=== PATIENT | female | born 1975 | race African-American/Black ===

== ENCOUNTER 2022-12-22 03:52 | Emergency (ER) | payer OTHER ==
--- OUTSIDE RECORDS SUMMARY | 2022-12-22 03:57 | XMS REPORT | Continuity of Care Document ---
:1975 Author Organization [facility] t Address [address] [place] [address] Care Team Providers Name Role Phone Pcp, Patient Does Not Have A Primary Care Physician [phone] JOHN DOYLE Attending Clinician Unavailable MD IAN Attending Clinician Unavailable LAB90 Attending Clinician Unavailable TAHMINA ORTA Attending Clinician Unavailable Dulce Nichols Attending Clinician Unavailable Doctor Unassigned, [place] Attending Clinician Unavailable NICA RECINOS Attending Clinician Unavailable Nica Recinos MD Attending Clinician Jaida Golden Attending Clinician Payers Payer Name Policy Type Policy Number Effective Date Expiration Date Gregorio price AETHARDIK CVS 9 [id number] 2022 BRONZE: HMO ON 00:00:00 STANDARD Problems Condition Condition Condition Status Onset Resolution Last Treating Co mments Source Name Details Category Date Date Treatment Clinician Date Lichen Lichen Disease Active Bridget planopilar planopilar 7-20 Se ybold is is 00:00: - 00 Externa l Chest pain Chest pain Disease Active K elsey 7-20 Seybold 00:00: - 00 Externa l Elevated Elevated Disease Active Kelse y brain brain 7-20 Seybold natriureti natriureti 00:00: - c peptide c peptide 00 Exte rna (BNP) (BNP) l level level HTN HTN Disease Active Bridget (hypertens (hypertens 7-19 Se ybold ion) ion) 00:00: - 00 Externa l BV BV Disease Active 2016-02 Univers (bacterial (bacterial 0-19 it y of vaginosis[place] Obesity Obesity Disease Active 2016-02 Univers due to due to 0-11 ity of excess excess 00:00: [place] calories calories 00 Medica l Branch History of History of Disease Active 2016-02 U nivers anxiety anxiety 0-11 ity of 00:00: [place] 00 Medical Branch History of History of Disease Active 2016-02 U nivers tubal tubal 0-11 ity of ligation ligation 00:00: [place] 00 Medical Branch Obesity Obesity Disease Active 2016-02 Univers due to due to 0-11 ity of excess excess 00:00: [place] calories calories 00 Medica l Branch D39.8 - D39.8 - Diagnosis Active 2016-11-25 Memoria NEOPLASM NEOPLASM 09-25 15:46:00 l OF OF 00:01: [place] UNCERTAIN UNCERTAIN 00 BEHAVIOR BEHAVIOR Active 09/25/2016 OPID Dowell Simple Simple Problem Active 2019-03-23 Kofi tamie obesity obesity 22:22:15 l (disorder) (disorder) He rmann Active Problem 03/23/2019 Medical Group Allergies, Adverse Reactions, Alerts Allergy Allergy Status Severity Reaction(s) Onset Inactive Treating Comm ents Source Name Type Date Date Clinician NO KNOWN Drug Active Univers ALLERGIE Class ity of S [facility] Social History Social Habit Start Date Stop Date Quantity Comments Source Sexual orientation [facility] Gender identity Bridget Se ybold - External Tobacco use and 2022-09-06 2022-09-06 Smokeless Bridget Se ybold - exposure 00:00:00 00:00:00 tobacco non-user External Alcohol intake 2022-09-06 2022-09-06 Current drinker Dank y Seybold - 00:00:00 00:00:00 of alcohol External (finding) Alcohol Comment 2022-09-06 2022-09-06 rare Bridget Se ybold - 00:00:00 00:00:00 External History of Social 2018-08-29 2018-08-29 Univers ity of function 00:00:00 00:00:00 [facility] Sex Ass[birth year] At [birth year] Bridget Baptiste ybold - 00:00:00 00:00:00 External Smoking Status Start Date Stop Date Source Social History [facility] Medications Ordered Filled Start Stop Current Ordering Indication Dosage Frequency Signature Comments Components Source Medication Medication Date Date Medication? Clinician (SIG) Name Name hydroCHLORO 3-0 Yes [id number] 25mg Take 1 Bridget thiazide 25 7-19 tablet (25 Se ybold MG oral 00:00: mg total) - Tablet 00 by mouth Externa every l morning Doxycycline 2022-0 Yes [id number] 100mg Take 1 Bridget Hyclate 100 6-27 capsule Seybo ld MG oral 00:00: (100 mg - Capsule 00 total) by Externa mouth l daily hydroCHLORO 3-0 Yes [id number] 25mg Take 1 Univers thiazide 25 5-30 tablet by ity of mg tablet 00:00: mouth [place] 00 every Medical morning. Branch methylPREDN 3-0 Yes [id number] Take by Univers ISolone 4 5-30 mouth ity of mg tablets 00:00: [place] CTIONS. Medical follow Branch package directions hydroCHLORO 3-0 Yes [id number] 25mg Take 1 Univers thiazide 25 5-30 tablet by ity of mg tablet 00:00: mouth [place] 00 every Medical morning. Branch methylPREDN 2023-0 Yes [id number] Take by Univers ISolone 4 5-30 mouth ity of mg tablets 00:00: [place] CTIONS. Medical follow Branch package directions hydroCHLORO 3-0 Yes [id number] 25mg Take 1 Univers thiazide 25 5-30 tablet by ity of mg tablet 00:00: mouth [place] 00 every Medical morning. Branch methylPREDN 2023-0 Yes [id number] Take by Univers ISolone 4 5-30 mouth ity of mg tablets 00:00: [place] CTIONS. Medical follow Branch package directions hydroCHLORO 3-0 Yes [id number] 25mg Take 1 Univers thiazide 25 5-30 tablet by ity of mg tablet 00:00: mouth [place] 00 every Medical morning. Branch methylPREDN 2023-0 Yes [id number] Take by Univers ISolone 4 5-30 mouth ity of mg tablets 00:00: [place] CTIONS. Medical follow Branch package directions hydroCHLORO 2023-0 Yes [id number] 25mg Take 1 Univers thiazide 25 5-30 tablet by ity of mg tablet 00:00: mouth [place] 00 every Medical morning. Branch methylPREDN Yes [id number] Take by Univers ISolone 4 5-30 mouth ity of mg tablets 00:00: [place] CTIONS. Medical follow Branch package directions hydroCHLORO 2022- No 25mg Take 1 Ludwin sey thiazide 25 5-30 07-19 tablet (25 S eybold MG oral 00:00: 00:00 mg total) - Tablet 00 :00 by mouth Externa every l morning Minoxidil Yes [id number] 2.5mg Take 1 K elsey 2.5 MG oral 5-01 tablet Seybol d Tablet 00:00: (2.5 mg - 00 total) by Externa mouth at l bedtime every day Metronidazo Yes 500 mg = 1 Memoria le 500 MG 1-30 tab, PO, l Oral Tablet 16:30: BID, X 7 He rmann 00 day, # 14 tab, 0 Refill(s), Pharmacy: [facility] [id number] Probiotic Yes 1 cap, PO, Me moria Formula 1-27 Daily, 0 l oral 16:40: Refill(s) Manuel capsule 00 naproxen Yes 550mg Take 1 Uni vers sodium 5-06 tablet by ity of (ANAPROX 00:00: mouth 2 [place] DS) 550 mg 00 (two) Medical tablet times Branch daily with meals. naproxen Yes 550mg Take 1 Uni vers sodium 5-06 tablet by ity of (ANAPROX 00:00: mouth 2 [place] DS) 550 mg 00 (two) Medical tablet times Branch daily with meals. naproxen Yes 550mg Take 1 Uni vers sodium 5-06 tablet by ity of (ANAPROX 00:00: mouth 2 [place] DS) 550 mg 00 (two) Medical tablet times Branch daily with meals. naproxen Yes 550mg Take 1 Uni vers sodium 5-06 tablet by ity of (ANAPROX 00:00: mouth 2 [place] DS) 550 mg 00 (two) Medical tablet times Branch daily with meals. naproxen Yes 550mg Take 1 Uni vers sodium 5-06 tablet by ity of (ANAPROX 00:00: mouth 2 [place] DS) 550 mg 00 (two) Medical tablet times Branch daily with meals. methylPREDN 2022- No Take by Univers ISolone 5-06 05-30 mouth ity of (MEDROL, 00:00: 00:00 [place] DARI,) 4 mg 00 :00 CTIONS. Medica l tablets follow Branch package directions metroNIDAZO Yes [id number] 500mg Take 1 Univers LE 500 mg 5-03 tablet by ity o f tablet 00:00: mouth 2 00 (two) Medical times Branch daily. metroNIDAZO Yes [id number] 500mg Take 1 Univers LE 500 mg 5-03 tablet by ity o f tablet 00:00: mouth 2 00 (two) Medical times Branch daily. metroNIDAZO Yes [id number] 500mg Take 1 Univers LE 500 mg 5-03 tablet by ity o f tablet 00:00: mouth 2 00 (two) Medical times Branch daily. metroNIDAZO Yes [id number] 500mg Take 1 Univers LE 500 mg 5-03 tablet by ity o f tablet 00:00: mouth 2 00 (two) Medical times Branch daily. metroNIDAZO Yes [id number] 500mg Take 1 Univers LE 500 mg 5-03 tablet by ity o f tablet 00:00: mouth 2 [place] 00 (two) Medical times Branch daily. Immunizations Ordered Filled Date Status Comments Source Immunization Name Immunization Name Covid-19 Vaccine 2020-03-30 Completed Bridget Machado ([employer]), Mrna-lnp, 00:00:00 Exter nal [place]an Protein, Pf, 30mcg/0.3ml,IM Covid-19 Vaccine 2020-03-09 Completed Bridget Machado ([employer]), Mrna-lnp, 00:00:00 Exter nal [place]an Protein, Pf, 30mcg/0.3ml,IM TDAP 2016-11-29 Completed [facility] 00:00:00 [facility] TDAP 2016-11-29 Completed [facility] 00:00:00 [facility] TDAP Unknown Completed [facility] TDAP Unknown Completed [facility] TDAP Unknown Completed [facility] Vital Signs Vital Name Observation Time Observation Value Comments Source Systolic blood 2022-09-06 19:49:00 122 mm[Hg] Bridget Wen - pressure External Diastolic blood 2022-09-06 19:49:00 76 mm[Hg] Dank beyer Seybold - pressure External Heart rate 2022-09-06 19:49:00 96 /min Bridget cisnerosbold - External Body temperature 2022-09-06 19:49:00 37.17 Fabiola Zora Wen - External Respiratory rate 2022-09-06 19:49:00 16 /min Zora cisneros Seybold - External Body height 2022-09-06 19:49:00 162.6 cm Bridget cisnerosbovinay - External Body weight 2022-09-06 19:49:00 84.369 kg Bridget cisnerosbovinay - External BMI 2022-09-06 19:49:00 31.93 kg/m2 Bridget cisnerosbovinay - External Oxygen saturation in 2022-09-06 19:49:00 91 /min Bridget Wen - Arterial blood by External Pulse oximetry Systolic blood 2022-07-18 19:49:00 156 mm[Hg] Univer sity [facility] Diastolic blood 2022-07-18 19:49:00 103 mm[Hg] Unive rsity of [facility] Heart rate 2022-07-18 19:49:00 77 /min [facility] Respiratory rate 2022-07-18 19:49:00 18 /min [facility] Oxygen saturation in 2022-07-18 19:49:00 100 /min [facility] Arterial blood by [facility] Pulse oximetry Branch Body temperature 2022-07-18 17:19:[address] [facility] height 2022-07-18 17:19:00 162.6 cm [facility] Body weight 2022-07-18 17:19:00 83.462 kg [facility] BMI 2022-07-18 17:19:00 31.58 kg/m2 [facility] Systolic (mm Hg) 2019-03-17 16:36:00 Kofi Jackson Diastolic (mm Hg) 2019-03-17 16:36:00 Mem orial Manuel Heart Rate 2019-03-17 16:36:00 Rudi Jackson Respitory Rate 2019-03-17 16:36:00 Travis Sidhu Temperature Oral (F) 2019-03-17 16:36:00 98.9 F Rudi Jackson Height 2019-03-17 16:36:00 162.56 cm Rudi Jackson Weight 2019-03-17 16:36:00 Rudi Jackson BMI Calculated 2019-03-17 16:36:00 Travis Sidhu Procedures Procedure Date / Time Performing Clinician Source Performed POCT TEST 2022-07-18 18:42:00 Nica Recinos [facility] COMP. METABOLIC PANEL 2022-07-18 18:30:00 Nica Recinos [facility] ([id number]) [facility] SEDIMENTATION RATE 2022-07-18 18:30:00 Nica Recinos [facility] CBC WITH DIFF 2022-07-18 18:30:00 Nica Recinos [place] [facility] PROTHROMBIN TIME / INR 2022-07-18 18:30:00 Nica Recinos [facility] ACTIVATED PARTIAL 2022-07-18 18:30:00 Nica Recinos [facility] THRMPLAS [facility] URINALYSIS 2022-07-18 18:30:00 Nica Recinos [facility] N-TERMINAL PRO-BNP 2022-07-18 18:30:00 Nica Recinos [facility] acute hospital URINE DRUG (IMMUNOASSAY) 2022-07-18 18:30:00 Nica Recinos [facility] DRUG [facility] SCREEN W/O REFLEX CONSENT/REFUSAL FOR 2022-07-18 17:13:55 Doctor Unassigned, No Un [facility] DIAGNOSIS AND TREATMENT Name Medical Branch Total hysterectomy 2013-02-19 00:00:00 Rudi Jackson Tubal ligation 1998-02-19 06:00:00 Rudi aden Encounters Start End Encounter Admission Attending Care Care Encounter Source Date/Time Date/Time Type Type Clinicians Facility Department ID 2022-10-24 2022-10-24 Outpatient BRIDGET DOYLE [id number] Bridget 09:10:00 09:10:00 JOHN Seybol juan 2022-10-24 2022-10-24 Outpatient VIVEK [facility] [id number] Bridget 00:00:00 00:00:00 JOHN Baptisteybol juan 2022-10-19 2022-10-19 Outpatient MOI [facility] [id number] Bridget 00:00:00 00:00:00 MD NOEMI Seybol juan 2022-09-06 2022-09-06 Outpatient LAB90 [facility] [id number] Bridget 15:50:00 15:50:00 Seybol juan 2022-09-06 2022-09-06 Outpatient LAYLACatrachitaBRIDGET [id number] Bridget 15:00:00 15:00:00 TAHMINA Baptisteybol juan 2022-07-21 2022-07-21 Ashlyn Nichols [facility] 1.2.840.114 [id number] Univers 00:00:00 00:00:00 (Out) Cardiology HEALTH 350.1.13.10 ity of - [place] [id number] [place] [address] Branch OFFICE [facility] 2022-07-21 2022-07-21 Patient Doctor [place] [id number] Univers 00:00:00 00:00:00 Secure Msg Unassigned, HEALTH 350.1.13.10 ity of [place] [id number] [place] [address] Branch OFFICE [facility] 2022-07-19 2022-07-19 Patient Doctor [facility] [id number] [id number] Univers 00:00:00 00:00:00 Secure Msg Unassigned, HEALTH 350.1.13.10 ity of [place] [phone] [address] OFFICE [facility] 2022-07-19 2022-07-19 Patient Doctor [facility] 1.2.840.114 [id number] Univers 00:00:00 00:00:00 Secure Msg Unassigned, PRIMARY 350.1.13.10 ity of [place] [facility] 4.2.7.2.686 Fede apodaca [place] [id number] Me dical [address] [place] 2022-07-18 2022-07-18 [id number] Univers 12:22:00 15:22:00 NICA ity [facility] 2022-07-18 2022-07-18 [facility] [id number] Univers 12:22:00 15:22:00 Nica [place] 350.1.13.10 i ty of [place] 4.2.7.2.686 Fede apodaca [place] [id number] [facility] [address] 2019-03-20 2019-03-21 Between nullFlavo [facility] [id number] Memoria 16:30:31 16:30:31 Visit r Primary 03 l Care Ben Lzi 2019-03-20 2019-03-21 Outpatient [facility] [id number] 10:30:31 10:30:31 03 2019-03-17 2019-03-18 Outpatient nullFlavo [facility] [id number] Memoria 16:30:00 05:59:59 r Primary 01 l Care Ben Liz 2019-03-17 2019-03-17 Outpatient Golden, [facility] [id number] 10:30:00 23:59:59 Jaida 01 2019-03-17 2019-03-17 Outpatient MHIE MHIE [id number] Memoria 10:30:00 10:30:00 01 catrachita Jackson 2016-09-25 2016-09-25 Outpatient MHIE [facility] [id number] Memoria 08:15:00 08:15:00 00 catrachita Jackson Results Test Description Test Time Test Comments Results Result Comments Source SEDIMENTATION RATE 2022-07-18 19:49:50 Test Item Value Reference Range Interpretation Comme nts ESR (test code = 83702-6) 12 See_Comment [ Automated message] The system which generated this result transmitted ref erence range: 0 - 20 mm/HR. The r eference range was not used to int erpret this result as normal/abnor mal. Lab Interpretation (test code = Normal 51833-4) [facility] [id number] 19:46:06 Test Item Value Reference Range Interpretation Comments NT-proBNP (test code = 307 pg/mL <=125 H [id number]) ELSI (test code = ELSI) Biotin has been reported to cause a negative bias, interpret results relative to patient's use of biotin. Lab Interpretation (test Abnormal code = 35938-8) [facility] THRMPLAS [id number] 19:42:22 Test Item Value Reference Range Interpretation Comments APTT Patient (test 23 See_Comment [Automat ed code = 3173-2) message] The system which generated this result transmitted reference range : 23 - 38 Seconds . The reference range was not used to interpr et this result as normal/abnormal . ELSI (test code = ELSI) The [facility] patient population mean normal value for aPTT is 30 seconds. Lab Interpretation Normal (test code = 32579-5) [facility] / [id number] 19:40:24 Test Item Value Reference Range Interpretation Comments PROTIME PATIENT (test 12.2 See_Comment [Auto mated message] code = 5964-2) The system wh ich generated this result transmitted ref erence range: 12.0 - 1 4.7 Seconds. The re ference range was not u sed to interpret this result as normal/abnor mal. INR (test code = 6301-6) 0.9 Nor mal INR <1.1; Warfarin Therap eutic range 2.0 to 3. 0 or 2.5 to 3.5, dep ending upon the indica tions. Lab Interpretation (test Normal code = 95008-9) [facility] ([id number])2022-07-18 19:37:41 Test Item Value Reference Range Interpretation Comments NA (test code = 138 mmol/L 135-145 4213432694) K (test code = 4.2 mmol/L 3.5-5.0 1899654689) CL (test code = 105 mmol/L 98-108 5128811963) CO2 TOTAL (test code 28 mmol/L 23-31 = 3602757355) AGAP (test code = 5 2-16 1118689685) BUN (test code = 12 mg/dL 7-23 4217484384) GLUCOSE (test code = 84 mg/dL 70-110 6096762285) CREATININE (test code 0.79 mg/dL 0.50-1.04 = 3104930564) TOTAL BILI (test code 0.6 mg/dL 0.1-1.1 = 0820277135) CALCIUM (test code = 8.9 mg/dL 8.6-10.6 5888242026) T PROTEIN (test code 6.9 g/dL 6.3-8.2 = 5673068571) ALBUMIN (test code = 3.8 g/dL 3.5-5.0 8508805341) ALK PHOS (test code = 57 U/L 34-122 5808716237) ALTv (test code = 29 U/L 5-35 1742-6) AST(SGOT) (test code 33 U/L 13-40 = 0457172998) eGFR (test code = 78.4 mL/min/1.73m2 6850035409) ELSI (test code = ELSI) Association of Glomerular Filtration Rate (GFR) and Staging of Kidney Disease* + + +- +| GFR (mL/min/1.73 m2) ?| With Kidney Damage ?| ?Without Kidney Damage+ ------+ ----+ ------+| ?>90 ?| ?Stage one ?| ? Normal ?+ -+ + -+| ?60-89 ?| ?Stage two ?| ? Decreased GFR ? + + +- +| ?30-59 ?| ?Stage three ?| ? Stage three ? + + +- +| ?15-29 ?| ?Stage four ? | ? Stage four ?+ -+ + -+| ?<15 (or dialysis) ? ?| ?Stage five ? | ? Stage five ?+ -+ + -+ *Each stage assumes the associated GFR level has been in effect for at least three months. ?Stages 1 to 5, with or without kidney disease, indicate chronic kidney disease. Notes: Determination of stages one and two (with eGFR >59mL/min/1.73 m2) requires estimation of kidney damage for at least three months as defined by structural or functional abnormalities of the kidney, manifested by either:Pathological abnormalities or Markers of kidney damage (including abnormalities in the composition of the blood or urine or abnormalities in imaging tests). [facility] WITH [id number] 19:18:20 Test Item Value Reference Range Interpretation Comments WBC (test code = 6.78 See_Comment [Automated 6690-2) message] The sy stem which generated this result transmitted reference range : 4.30 - 11.10 10*3/?L. The reference range was not used to interpret this result as normal/abnormal . RBC (test code = 4.32 See_Comment [Automated 789-8) message] The sy stem which generated this result transmitted reference range : 3.93 - 5.25 10*6/?L. The reference range was not used to interpret this result as normal/abnormal . HGB (test code = 12.4 g/dL 11.6-15.0 718-7) HCT (test code = 37.6 % 35.7-45.2 4544-3) MCV (test code = 87.0 fL 80.6-95.5 787-2) MCH (test code = 28.7 pg 25.9-32.8 785-6) MCHC (test code = 33.0 g/dL 31.6-35.1 786-4) RDW-SD (test code = 38.6 fL 39.0-49.9 L 79173-2) RDW-CV (test code = 12.0 % 12.0-15.5 788-0) PLT (test code = 235 See_Comment [Automated 777-3) message] The sy stem which generated this result transmitted reference range : 166 - 358 10*3/ ?L. The reference r alissa was not used to interpret this result as normal/abnormal . MPV (test code = 10.8 fL 9.5-12.9 21140-9) NRBC/100 WBC (test 0.0 See_Comment [Automat ed code = 3628636066) message] The system which generated this result transmitted reference range : 0.0 - 10.0 /100 WBCs. The refer ence range was not u sed to interpret th is result as normal/abnormal . NRBC x10^3 (test code See_Comment [Auto mated = 3561612437) message] The s ystem which generated this result transmitted reference range : 10*3/?L. The reference range was not used to interpret this result as normal/abnormal . GRAN MAT (NEUT) % 54.0 % (test code = 770-8) IMM GRAN % (test code 0.10 % = 7826431252) LYMPH % (test code = 35.1 % 736-9) MONO % (test code = 6.8 % 5905-5) EOS % (test code = 3.1 % 713-8) BASO % (test code = 0.9 % 706-2) GRAN MAT x10^3(ANC) 3.66 10*3/uL 1.88-7.09 (test code = 7817043794) IMM GRAN x10^3 (test 0.00-0.06 code = 1789661289) LYMPH x10^3 (test code 2.38 10*3/uL 1.32-3.29 = 731-0) MONO x10^3 (test code 0.46 10*3/uL 0.33-0.92 = 742-7) EOS x10^3 (test code = 0.21 10*3/uL 0.03-0.39 711-2) BASO x10^3 (test code 0.06 10*3/uL 0.01-0.07 = 704-7) Lab Interpretation Abnormal (test code = 10932-7) [facility] [id number] 18:42:00 Test Item Value Reference Range Interpretation Comments POCT PREG (test code = 1605) Negative On board controls acceptable with Yes C Line (test code = 3574) POCT PREG LOT # (test code = 3575) [id number] POCT PREG TEST DATE (test 11-25-2023 code = 3576) Lab Interpretation (test code = Normal 13724-7) [facility]"
[2022-12-22] MEDS ORDERED: MORPHINE 4 MG/ML SYR ONE (04:22)
[2022-12-22] MEDS ORDERED: NA CHLORIDE 0.9% 1,000 ML ONE (04:22)
[2022-12-22] MEDS ORDERED: FAMOTIDINE 20 MG/2 ML VIAL IV ONE (04:22)
[2022-12-22] MEDS ORDERED: ONDANSETRON 4 MG/2 ML VIAL ONE (04:22)
[2022-12-22 04:24] LABS: Absolute Lymphocytes (CBC) 2.8 K/uL (0.7-4.9); Hematocrit 40.4 % (36.0-45.0); MCV 86.6 fL (80-100); MPV 8.8 fL (7.6-11.3); Platelets 238 thou/uL (152-406); RBC Red Blood Cell Count 4.67 M/uL (3.86-4.86)
[2022-12-22 04:41] LABS: Albumin 3.5 g/dL (3.4-5.0); Bilirubin Total 0.2 mg/dL (0.2-1.0); Potassium 3.7 mEq/L (3.5-5.1); Protein, Total 7.6 g/dL (6.4-8.2)
--- NOTE | 2022-12-22 05:34 | ER ---
Nurse's Notes [facility] Name: Tegan Humphrey Age: 47 yrs Sex: Female : 1975 Arrival Date: 12/22/2022 Time: 03:52 Bed 15 Private MD: Diagnosis: Epigastric abdominal tenderness;Calculus of gallbladder and bile duct with acute cholecystitis with obstruction-CHOLEDOCLITHIASIS Presentation: 12/22 04:08 Chief complaint: Patient states: indigestion for the past 2 weeks but the last 2 nights as6 when she lays down the pain shifts to her right side of her chest. Coronavirus screen: At this time, the client does not indicate any symptoms associated with coronavirus-19. Ebola Screen: No symptoms or risks identified at this time. Initial Sepsis Screen: Does the patient meet any 2 criteria? No. Patient's initial sepsis screen is negative. Does the patient have a suspected source of infection? No. Patient's initial sepsis screen is negative. Risk Assessment: Do you want to hurt yourself or someone else? Patient reports no desire to harm self or others. Onset of symptoms was December 20, 2022. 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 - Social history:: Smoking status: Patient denies any tobacco usage or history of. - Family history:: not pertinent. Screenin:[address] [facility] ED Fall Risk Assessment (Adult) History of falling in the last 3 months, jw7 including since admission No falls in past 3 months (0 pts) Score/Fall Risk Level 0 - 2 = Low Risk Oriented to surroundings, Maintained a safe environment. Abuse screen: Denies threats or abuse. Denies injuries from another. Nutritional screening: No deficits noted. Tuberculosis screening: No symptoms or risk factors identified. Assessment: 04:15 General: Appears in no apparent distress. uncomfortable, Behavior is calm, cooperative. jw7 Pain: Complains of pain in right upper quadrant Pain radiates to back Pain currently is 8 out of 10 on a pain scale. Quality of pain is described as sharp, stabbing, Pain began suddenly, Is continuous, Alleviated by nothing. Aggravated by eating, Noted to be grimacing, guarding, resistant to movement, restless, Also complains of decreased appetite, sleeplessness. Neuro: Contreras Agitation-Sedation Scale (RASS): 0 - Alert and Calm Level of Consciousness is awake, alert, obeys commands, Oriented to person, place, time, situation. Cardiovascular: Capillary refill < 3 seconds Clubbing of nail beds is absent JVD is absent Patient's skin is warm and dry. Respiratory: Airway is patent Trachea midline Respiratory effort is even, unlabored, Respiratory pattern is regular, symmetrical. GI: Abdomen is flat, non-distended, Bowel sounds present X 4 quads. Abd is soft X 4 quads Abdomen is tender to palpation in right upper quadrant Guarding noted Reports upper abdominal pain. : No deficits noted. No signs and/or symptoms were reported regarding the genitourinary system. EENT: No deficits noted. No signs and/or symptoms were reported regarding the EENT system. Derm: Skin is intact, is healthy with good turgor, Skin is dry, Skin is normal, Skin temperature is warm. Musculoskeletal: Circulation, motion, and sensation intact. Range of motion: intact in all extremities. 05:10 Reassessment: Patient appears in no apparent distress at this time. No changes from jw7 previously documented assessment. Patient and/or family updated on plan of care and expected duration. Pain level reassessed. Patient is alert, oriented x 3, equal unlabored respirations, skin warm/dry/pink. 06:12 Reassessment: Patient appears in no apparent distress at this time. Patient and/or jw7 family updated on plan of care and expected duration. Pain level reassessed. Patient is alert, oriented x 3, equal unlabored respirations, skin warm/dry/pink. Patient states feeling better. Patient states symptoms have improved. 06:56 Reassessment: Patient appears in no apparent distress at this time. No changes from 7 previously documented assessment. Patient and/or family updated on plan of care and expected duration. Pain level reassessed. Patient is alert, oriented x 3, equal unlabored respirations, skin warm/dry/pink. 07:10 Reassessment: Patient appears in no apparent distress at this time. Patient and/or db family updated on plan of care and expected duration. Pain level reassessed. Patient is alert, oriented x 3, equal unlabored respirations, skin warm/dry/pink. ambulatory to restroom. Vital Signs: 04:06 BP 140 / 93; Pulse 77; Resp 18 S; Temp 97.9(TE); Pulse Ox 100% on R/A; Weight 79.83 kg as6 (R); Height 5 ft. 4 in. (R); Pain 7/10; 05:00 BP 128 / 86; Pulse 69; Resp 17 S; Pulse Ox 100% on R/A; jw7 06:16 BP 135 / 88; Pulse 70; Resp 16 S; Pulse Ox 100% on R/A; jw7 07:05 BP 144 / 87; Pulse 71; Resp 16; Pulse Ox 100% on R/A; db 04:06 Body Mass Index 30.21 (79.83 kg, 162.56 cm) as6 04:06 Pain Scale: Adult as6 ED Course: 03:57 Patient arrived in ED. gm2 03:59 Clay Barker, RN is Primary Nurse. as6 04:01 Leonel Trejo MD is Attending Physician. jonathan 04:05 Ashli Shultz, RN is Primary Nurse. jw7 04:06 Arm band placed on. as6 04:14 Triage completed. as6 04:15 Patient has correct armband on for positive identification. Bed in low position. Call jw7 light in reach. Side rails up X 1. 04:46 Troponin HS Sent. jw7 04:46 Initial lab(s) drawn, by ED staff, sent to lab. Inserted saline lock: 22 gauge in left jw7 antecubital area, using aseptic technique. Blood collected. 05:02 Abdomen Limited US In Process Unspecified. EDMS 05:22 CT Abd/Pelvis - IV Contrast Only In Process Unspecified. EDMS 05:35 transfer initiated by Leela with Camille Oliveros From the [facility]. eb 05:37 Test, Urine Sent. kmf 05:37 Urinalysis w/ reflexes Sent. kmf 05:57 Dr. Pan the hospitalist pain management nurse practitioner for [facility] was connected with Dr. Neil florian for patient transfer consultation. 06:05 administrative approval given by Camille Boswell Rn to [facility] tech/ patient has been eb accepted to [facility] room 1642/ Dr. Sarah Pan has accepted the patient in transfer/ report to be called to [phone]. 06:17 No provider procedures requiring assistance completed. jw7 06:54 [facility] unavailable till after 0800/ [facility] for transport eta 25 eb minutes. 06:56 Provided Education on: need for transfer. jw7 06:56 Patient transferred, IV remains in place. jw7 07:23 Pulse ox on. NIBP on. db Administered Medications: 04:47 Drug: NS 0.9% IV 1000 ml IV at 1 bolus Per protocol; 1000 mL bolus Route: IV; Rate: 1 jw7 bolus; Site: left antecubital; 07:10 Follow up: Response: No adverse reaction; IV Status: Completed infusion db 04:47 Drug: Famotidine IVP 20 mg IVP once; dilute with 10 mL 0.9% NaCl; give over 2 minutes jw7 Route: IVP; Site: left antecubital; 06:06 Follow up: Response: No adverse reaction; Marked relief of symptoms jw7 04:47 Drug: Ondansetron IVP 4 mg IVP once; over 2 minutes Route: IVP; Site: left antecubital; jw7 06:06 Follow up: Response: No adverse reaction; Marked relief of symptoms jw7 04:47 Drug: morphine IVP or IV 4 mg IVP once over 4 mins Route: IVP; Infused Over: 4 mins; jw7 Site: left antecubital; 06:06 Follow up: Response: No adverse reaction; Marked relief of symptoms jw7 06:05 Drug: Piperacillin-Tazobactam IVPB 3.375 grams IVPB once over 60 mins; (mix in NS 100 jw7 mL) Route: IVPB; Infused Over: 60 mins; Site: left antecubital; 07:10 Follow up: Response: No adverse reaction; IV Status: Completed infusion db Medication: 06:17 VIS not applicable for this client. jw7 Outcome: 05:33 ER care complete, transfer ordered by MD. castillo 07:23 Transferred by ground EMS to [facility], Transfer form completed. db 07:23 Condition: stable 07:23 Instructed on the need for transfer, 07:25 Patient left the ED. db Signatures: Dispatcher [employer] EDLeonel Pepe MD MD cha Botello, Elizabeth eb Slawson, Ashby RN RN as6 Ashli Shultz RN RN jw7 Glenny Vu RN RN Mehreen Hope [facility] Bridget Ibarra [facility]
--- NOTE | 2022-12-22 05:34 | EDPHYS ---
Physician Documentation [facility] Name: Tegan Humphrey Age: 47 yrs Sex: Female : 1975 Arrival Date: 12/22/2022 Time: 03:52 Bed 15 Private MD: MALGORZATA Physician Leonel Trejo HPI: 12/22 05:18 This 47 yrs old Black Female presents to ER via Ambulatory with complaints of upper jonathan right side pain.. 05:18 The patient presents with abdominal pain in the upper abdomen, abdominal distention in jonathan the upper abdomen. Onset: The symptoms/episode began/occurred 5 day(s) ago. The patient presents to the emergency department with nausea, that is moderate, vomiting, that is intermittent. Onset: The symptoms/episode began/occurred 5 day(s) ago. Possible causes: unknown. The symptoms are aggravated by movement, food , The symptoms are alleviated by remaining still. Associated signs and symptoms: Pertinent positives: abdominal pain. The symptoms radiate to right back. Associated signs and symptoms: Pertinent positives: nausea and vomiting. 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 - Social history:: Smoking status: Patient denies any tobacco usage or history of. - Family history:: not pertinent. ROS: 05:18 Constitutional: Negative for fever, chills, and weight loss, Eyes: Negative for injury, jonathan pain, redness, and discharge, ENT: Negative for injury, pain, and discharge, Neck: Negative for injury, pain, and swelling, Cardiovascular: Negative for chest pain, palpitations, and edema, Respiratory: Negative for shortness of breath, cough, wheezing, and pleuritic chest pain, Back: Negative for injury and pain, : Negative for injury, bleeding, discharge, and swelling, MS/Extremity: Negative for injury and deformity, Skin: Negative for injury, rash, and discoloration, Neuro: Negative for headache, weakness, numbness, tingling, and seizure, Psych: Negative for depression, anxiety, suicide ideation, homicidal ideation, and hallucinations, Allergy/Immunology: Negative for hives, rash, and allergies, Endocrine: Negative for neck swelling, polydipsia, polyuria, polyphagia, and marked weight changes, Hematologic/Lymphatic: Negative for swollen nodes, abnormal bleeding, and unusual bruising, 05:18 Abdomen/GI: Positive for abdominal pain, of the epigastric area, posterior aspect of right lateral abdomen, anterior aspect of right lateral abdomen and right upper quadrant, 05:18 Back: Positive for flank pain, on the right, Exam: 05:18 Constitutional: This is a well developed, well nourished patient who is awake, alert, jonathan and in no acute distress. Head/Face: Normocephalic, atraumatic. Eyes: Pupils equal round and reactive to light, extra-ocular motions intact. Lids and lashes normal. Conjunctiva and sclera are non-icteric and not injected. Cornea within normal limits. Periorbital areas with no swelling, redness, or edema. ENT: Nares patent. No nasal discharge, no septal abnormalities noted. Tympanic membranes are normal and external auditory canals are clear. Oropharynx with no redness, swelling, or masses, exudates, or evidence of obstruction, uvula midline. Mucous membranes moist. Neck: Trachea midline, no thyromegaly or masses palpated, and no cervical lymphadenopathy. Supple, full range of motion without nuchal rigidity, or vertebral point tenderness. No Meningismus. Chest/axilla: Normal chest wall appearance and motion. Nontender with no deformity. No lesions are appreciated. Cardiovascular: Regular rate and rhythm with a normal S1 and S2. No gallops, murmurs, or rubs. Normal PMI, no JVD. No pulse deficits. Respiratory: Lungs have equal breath sounds bilaterally, clear to auscultation and percussion. No rales, rhonchi or wheezes noted. No increased work of breathing, no retractions or nasal flaring. Back: No spinal tenderness. No costovertebral tenderness. Full range of motion. Female : Normal external genitalia. Skin: Warm, dry with normal turgor. Normal color with no rashes, no lesions, and no evidence of cellulitis. MS/ Extremity: Pulses equal, no cyanosis. Neurovascular intact. Full, normal range of motion. Neuro: Awake and alert, GCS 15, oriented to person, place, time, and situation. Cranial nerves II-XII grossly intact. Motor strength 5/5 in all extremities. Sensory grossly intact. Cerebellar exam normal. Normal gait. Psych: Awake, alert, with orientation to person, place and time. Behavior, mood, and affect are within normal limits. 05:18 ECG was reviewed by the Attending Physician. 05:18 Abdomen/GI: Inspection: abdomen appears normal, Bowel sounds: normal, Palpation: mild abdominal tenderness, in the posterior aspect of right lateral abdomen, anterior aspect of right lateral abdomen and right upper quadrant, Liver: no appreciated palpable abnormalities, Hernia: not appreciated, 05:41 ECG was reviewed by the Attending Physician. [facility] Vital Signs: 04:06 BP 140 / 93; Pulse 77; Resp 18 S; Temp 97.9(TE); Pulse Ox 100% on R/A; Weight 79.83 kg as6 (R); Height 5 ft. 4 in. (R); Pain 7/10; 05:00 BP 128 / 86; Pulse 69; Resp 17 S; Pulse Ox 100% on R/A; jw7 06:16 BP 135 / 88; Pulse 70; Resp 16 S; Pulse Ox 100% on R/A; jw7 07:05 BP 144 / 87; Pulse 71; Resp 16; Pulse Ox 100% on R/A; db 04:06 Body Mass Index 30.21 (79.83 kg, 162.56 cm) as6 04:06 Pain Scale: Adult as6 MDM: 04:02 Patient medically screened. [facility] 05:22 Differential diagnosis: Nonspecific abd pain, pancreatitis, appendicitis, jonathan diverticulitis, viral gastroenteritis, gastroenteritis, cholecystitis, Cholelithiasis, diverticulitis, gastritis, Hepatitis, Mesenteric ischemia or infarction, non-specific abd pain, pancreatitis, Peritonitis, Ureterolithiasis, urinary tract infection. Data reviewed: vital signs, nurses notes, lab test result(s), EKG, radiologic studies, CT scan, plain films, ultrasound. Consideration of Admission/Observation Escalation of care including admission/observation considered. I considered the following discharge prescriptions or medication management in the emergency department Medications were administered in the Emergency Department. See MAR. Independent interpretation of the following test(s) in the Emergency Department EKG: See my EKG interpretation above. Test considered but Not performed: MRI: NO MRCP. Historians other than the Patient: NONE , PT WELL INFORMED. Care significantly affected by the following chronic conditions: Hypertension, Obesity. Counseling: I had a detailed discussion with the patient and/or guardian regarding the historical points, exam findings, and any diagnostic results supporting the discharge/admit diagnosis, lab results, radiology results, the need to transfer to another facility, for higher level of care, [facility] does not immediately have the required specialist. 12/22 04:02 Order name: CBC with Diff; Complete Time: 05:15 [facility] 12/22 04:02 Order name: CMP; Complete Time: 05:15 [facility] 12/22 04:02 Order name: Lipase; Complete Time: 05:15 [facility] 12/22 04:02 Order name: Test, Urine; Complete Time: 05:53 [facility] 12/22 04:02 Order name: Urinalysis w/ reflexes; Complete Time: 05:53 [facility] 12/22 04:06 Order name: Troponin HS; Complete Time: 05:53 [facility] 12/22 04:02 Order name: Abdomen Limited US [facility] 12/22 04:02 Order name: CT Abd/Pelvis - IV Contrast Only [facility] 12/22 04:06 Order name: EKG; Complete Time: 04:06 [facility] 12/22 04:02 Order name: IV Saline Lock; Complete Time: 05:37 [facility] 12/22 04:02 Order name: Labs collected and sent; Complete Time: 05:37 [facility] 12/22 04:06 Order name: EKG - Nurse/Tech; Complete Time: 05:36 [facility] EC:41 Rate is 72 beats/min. Rhythm is regular. QRS [place] is Normal. QRS interval is normal. QT jonathan interval is prolonged at 470 msec. No Q waves. T waves are Normal. No ST changes noted. Clinical impression: NSR w/ Non-specific ST/T Changes and Abnormal EKG without significant change. Interpreted by me. Reviewed by me. Administered Medications: 04:47 Drug: NS 0.9% IV 1000 ml IV at 1 bolus Per protocol; 1000 mL bolus Route: IV; Rate: 1 jw7 bolus; Site: left antecubital; 07:10 Follow up: Response: No adverse reaction; IV Status: Completed infusion db 04:47 Drug: Famotidine IVP 20 mg IVP once; dilute with 10 mL 0.9% NaCl; give over 2 minutes jw7 Route: IVP; Site: left antecubital; 06:06 Follow up: Response: No adverse reaction; Marked relief of symptoms jw7 04:47 Drug: Ondansetron IVP 4 mg IVP once; over 2 minutes Route: IVP; Site: left antecubital; jw7 06:06 Follow up: Response: No adverse reaction; Marked relief of symptoms jw7 04:47 Drug: morphine IVP or IV 4 mg IVP once over 4 mins Route: IVP; Infused Over: 4 mins; jw7 Site: left antecubital; 06:06 Follow up: Response: No adverse reaction; Marked relief of symptoms jw7 06:05 Drug: Piperacillin-Tazobactam IVPB 3.375 grams IVPB once over 60 mins; (mix in NS 100 jw7 mL) Route: IVPB; Infused Over: 60 mins; Site: left antecubital; 07:10 Follow up: Response: No adverse reaction; IV Status: Completed infusion db Disposition Summary: 12/22/22 05:33 Transfer Ordered Notes: Transfer Location: [facility] jonathan Reason: Higher level of care jonathan Condition: Stable jonathan Problem: new jonathan Symptoms: have improved jonathan Accepting Physician: TO MEDICINE(12/22/22 07:25) db Diagnosis - Epigastric abdominal tenderness jonathan - Calculus of gallbladder and bile duct with acute cholecystitis with obstruction - jonathan CHOLEDOCLITHIASIS Forms: - Medication Reconciliation Form jonathan - SBAR form jonathan Signatures: Dispatcher [employer] EDMS Leonel Trejo MD MD cha Slawson, Ashby, RN RN as6 Ashli Shultz RN RN jw7 Glenny Vu RN RN db Corrections: (The following items were deleted from the chart) 05:08 04:09 Chest For PE Angio+CT.RAD.BRZ ordered. EDNH EDMS 05:42 05:18 Rate is 76 beats/min. Rhythm is regular. QRS [place] is Normal. [place] interval is jonathan normal. QRS interval is normal. QT interval is normal. No Q waves. T waves are Normal. No ST changes noted. Clinical impression: NSR w/ Non-specific ST/T Changes and No evidence of ischemia. Interpreted by me. Reviewed by me. [facility] 07:25 05:33 TO MEDICINE jonathan db
[2022-12-22 05:40] LABS: Specific Gravity > 1.030 (1.005-1.030); Urine Bacteria None Seen /HPF (<20); Urine Bilirubin NEGATIVE (Negative); Urine Blood Negative (Negative); Urine Clarity Clear (Clear); Urine Color Light-Yellow (Yellow); Urine Glucose NEGATIVE (Negative); Urine Protein TRACE (Negative); Urine RBC <5 /HPF (None Seen); Urine Urobilinogen Normal (Normal); Urine pH 8.5 (5.0-7.0)
[2022-12-22] MEDS ORDERED: NA CHLORIDE 0.9% 100 ML ONE (05:53)
[2022-12-22] MEDS ORDERED: PIPERACIL/TAZO 3.375 GM VIAL IV ONE (05:53)
[2022-12-22 07:50] VITALS: O2SAT 100
[2022-12-22 07:52] VITALS: TEMP 97.9
[2022-12-22 07:55] VITALS: BP 144/87
--- NOTE | 2022-12-22 21:13 | RAD REPORT ---
EXAM DESCRIPTION: US - Abdomen Exam Limited - 12/22/2022 5:00 am CLINICAL HISTORY: The patient is 47 years old and is Female; ABD PAIN TECHNIQUE: Real-time ultrasound of the right upper quadrant with image documentation. COMPARISON: CT abdomen pelvis December 22, 2022. FINDINGS: Gallbladder: Small stones and sludge in the gallbladder. The calculus visualized near th e gallbladder neck on the recent CT is not well visualized sonographically. No pericholecystic fluid. Gallbladder wall thickness 2.2 mm. Common bile duct: Dilated common bile duct, 10 mm. No stones. Pancreas: Unremarkable as visualized. IMPRESSION: 1. Cholelithiasis and sludge. The stone visualized in the gallbladder neck on the rece nt CT is not well visualized sonographically. 2. Dilated common bile duct, 10 mm. Electronically signed by: Angie Cam MD 12/22/2022 5:42 AM CDT Due to temporary technical issues with the PACS/Fluency reporting system, reports are being signed by the in house radiologists without review as a courtesy to insure prompt reporting. The interpreting radiologist is fully responsible for the content of the report.
--- NOTE | 2022-12-22 21:17 | RAD REPORT ---
EXAM DESCRIPTION: CT - Abdomen Pelvis W Contrast - 12/22/2022 6:33 am CLINICAL HISTORY: The patient is 47 years old and is Female; ABD PAIN TECHNIQUE: Axial computed tomography images of the abdomen and pelvis with intravenous contrast. S agittal and coronal reformatted images were created and reviewed. This CT exam was performed using one or more of the following dose reduction techniques: automated exposure control, adjustment of t he mA and/or kV according to patient size, and/or use of iterative reconstruction technique. COMPARISON: Gallbladder ultrasound December 22, 2022. FINDINGS: Lung bases: Unremarkable. No mass. No consolidation. ABDOMEN: Liver: Unremarkable. No mass. Gallbladder and bile ducts: Multiple stones and sludge in the gallbladder. There is an 8 mm calcu frances in the gallbladder neck. Mild biliary duct dilatation. No choledocholithiasis. Pancreas: No findings to suggest acute pancreatitis. No mass visualized. No ductal dilation. Spleen: Unremarkable. No splenomegaly. Adrenals: Unremarkable. No mass. Kidneys and ureters: Unremarkable. No solid mass. No hydronephrosis. Stomach and bowel: No bowel dilatation or obstruction. No bowel wall thickening. PELVIS: Appendix: The visualized appendix is normal. No pericecal inflammation to suggest acute appendici tis. Bladder: Unremarkable. No mass. Reproductive: Unremarkable as visualized. ABDOMEN and PELVIS: Intraperitoneal space: Unremarkable. No free air. No significant fluid collection. Bones/joints: No acute fracture visualized. No dislocation. Soft tissues: Unremarkable. Vasculature: Unremarkable. No abdominal aortic aneurysm. Lymph nodes: No pathologically enlarged lymph nodes. IMPRESSION: 1. Multiple stones and sludge in the gallbladder. There is an 8 mm calculus in the gal lbladder neck. 2. Mild biliary duct dilatation. Electronically signed by: Angie Cam MD 12/22/2022 5:44 AM CDT Due to temporary technical issues with the PACS/Fluency reporting system, reports are being signed by the in house radiologists without review as a courtesy to insure prompt reporting. The interpreting radiologist is fully responsible for the content of the report.
== END 2022-12-22 07:25 | disposition short-term general hospital (02) ==
LOC: ER 03:52
DX: K80.63 Calculus of gallbladder and bile duct with acute cholecystitis with obstruction (principal)
CPT/HCPCS: 96365; 96361; 93005; 85025; 81001; 36415; 81025; 84484; 83690; 80053; 74177; 76705; 96375; 99285; Q9967; J2543; J2405; J7030